=== PATIENT | male | born 1985 | race African-American/Black ===

== ENCOUNTER → 2017-10-04 | Outpatient (CLI) | payer OTHER ==
--- NOTE | 2017-10-04 10:01 | KCIC ---
MRI Lumbar Spine without contrast History: Strain muscle of the lower back, low back pain in recent weeks after a fall Technique: Multiplanar, multi sequential noncontrast MR imaging was performed of the lumbar spine. Contrast: None Comparison: None Findings: Lumbar vertebral body stature and AP alignment are maintained. There is mild degenerative disc disease L4-5. There is no significant marrow edema. Conus terminates at L1-2. L1-2, L2-3: These levels were not included on the axial images. Spinal canal and neural foramina are adequate. L3-L4: Spinal canal and neural foramina are adequate. L4-L5: There is negligible disc osteophyte complex more eccentric to the inferior left neural foramen, minimal narrowing of the left neural foramen inferiorly. Right neural foramen and spinal canal are adequate. L5-S1: Neural foramina and spinal canal are adequate. Impression: 1. There is mild degenerative disc disease and spondylosis at L4-5, minimal narrowing of the left L4-5 neural foramen. There is no lumbar spinal stenosis. Electronically signed by: Juan Eason MD (10/04/2017 9:58 AM) [id number]
== END | disposition home or self-care (01) ==
LOC: KCIC MRI 08:50
PROVIDERS: ATTEND Physical Medicine & Rehabilitation Sports Medicine
DX: S39.012D Strain of muscle, fascia and tendon of lower back, subsequent encounter (principal); M51.36 Other intervertebral disc degeneration, lumbar region; M47.896 Other spondylosis, lumbar region; X58.XXXD Exposure to other specified factors, subsequent encounter
CPT/HCPCS: 72148